=== PATIENT | female | born 1975 | race Caucasian/White ===

== ENCOUNTER 2016-09-17 09:28 | Emergency (ER) | payer SELFPAY ==
[2016-09-17 09:50] VITALS: BP 135/80
--- NOTE | 2016-09-17 10:32 | UC ---
Dental HPI - HPI Summary HPI Summary: pt presents with c/o sudden onset of right upper jaw/dental swelling and tenderness. Pt was recently seen by dental care provider for evaluation of dental c/o and treatment plan. - History of Current Complaint Chief Complaint: UCDentalProblem Stated Complaint: ORAL PAIN Time Seen by Provider: 09/17/16 10:21 Hx Obtained From: Patient Hx Last Menstrual Period: tubal ?: No Onset/Duration: Sudden Onset, Lasting Days Severity: Moderate Aggravating: Chewing Alleviating: OTC Meds - ibuprofen Related History: Swelling, Other - poor dentition - Allergies/Home Medications Allergies/Adverse Reactions: Allergies Allergy/AdvReac Type Severity Reaction Status Date / Time No Known Allergies Allergy Verified 09/17/16 09:50 Home Medications: Home Medications Ibuprofen TAB* [Motrin TAB* 600 MG] 600 mg PO Q6H PRN 09/17/16 [History Confirmed 09/17/16] PMH/Surg Hx/FS Hx/Imm Hx Previously Healthy: Yes - Surgical History Surgical History: Yes Surgery Procedure, Year, and Place: tubal ligation 2011; right gangliion cyst 2000 - Family History Known Family History: Positive: Cardiac Disease - Social History Lives: With Family Alcohol Use: Rare Substance Use Type: None Smoking Status (MU): Light Every Day Tobacco Smoker Type: Cigarettes Amount Used/How Often: 6CIGS PER DAY Have You Smoked in the Last Year: Yes Household Exposure Type: Cigarettes - Immunization History Most Recent Influenza Vaccination: FALL 2013 Review of Systems Constitutional: Negative Skin: Negative Eyes: Negative ENT: Dental Pain, Other - swelling right upper jaw/cheek Respiratory: Negative Cardiovascular: Negative Gastrointestinal: Negative Genitourinary: Negative Motor: Negative Neurovascular: Negative Musculoskeletal: Negative Neurological: Negative Psychological: Negative All Other Systems Reviewed And Are Negative: Yes Physical Exam Triage Information Reviewed: Yes Appearance: Other: - right facial cheek swelling Vital Signs: Initial Vital Signs Temp 98.1 F 09/17/16 09:46 Pulse 90 09/17/16 09:46 Resp 14 09/17/16 09:46 BP 135/80 09/17/16 09:46 Pulse Ox 98 09/17/16 09:46 Vital Signs Reviewed: Yes Eye Exam: Normal Dental Exam: Other Dental: Positive: Gross Decay/Caries @ - generalized, Dental Fracture @ - mulitiple, Abscess @ - right upper jaw Neck exam: Normal Respiratory Exam: Normal Cardiovascular Exam: Normal Musculoskeletal Exam: Normal Neurological Exam: Normal Psychological Exam: Normal Skin Exam: Normal Dental Complaint Course/Dx - Differential Dx/Diagnosis Differential Diagnosis/Dx: Dental Abscess, Fractured Tooth Provider Diagnoses: dental abscess, right upper jaw, Discharge - Discharge Plan Condition: Stable Disposition: HOME Prescriptions: Amoxicillin (*) [Amoxicillin 875 MG (*)] 875 mg PO Q12H #20 tab Patient Education Materials: Dental Abscess (ED) Referrals: NEY Gotti [Primary Care Provider] - Additional Instructions: Please follow up with your dental care provider.
== END 2016-09-17 10:40 | disposition home or self-care (01) ==
LOC: UCCORT 09:28
DX: K04.7 Periapical abscess without sinus (principal); F17.210 Nicotine dependence, cigarettes, uncomplicated
CPT/HCPCS: 99212; G0463